=== PATIENT | male | born 1965 | race Caucasian/White ===

== ENCOUNTER 2021-02-22 13:42 | Inpatient (IN) | payer MEDICARE, MEDICAID ==
[~2021-02-22] VITALS: Ht 157.5 cm; Wt 77.1 kg
--- NOTE | ~2021-02-22 | OP ---
[address] [address] OPERATIVE REPORT Name: FAM JIANG Ольга Room: [address] IN .R.#: [id number] Admission: 02/22/21 Attend Phys: Lionel Pettit MD Discharge: 02/25/21 Date of : 63 Report #: [id number] THIS REPORT FOR: cc: FAM - Family physician unknown FAM - Family physician unknown Sumeet Carey DO ~ DOC #: [id number] Aashish Carey DO DATE OF SURGERY: 02/22/2021 SURGEON: Chris Morton DO ASSISTANTS: Aashish Carey DO and Adalberto Crump DO PREOPERATIVE DIAGNOSIS: Left ankle bimalleolar fracture, closed, displaced. POSTOPERATIVE DIAGNOSIS: Left ankle bimalleolar fracture, closed, displaced. OPERATION PERFORMED: Closed reduction and external fixation application of left bimalleolar ankle fracture. INDICATIONS: The patient is a 55-year-old male who sustained a fall when he was attempting to sit into his rollator walker, and the brakes were not securely engaged causing him to lose his balance and fall causing a twisting injury of his left ankle. This happened approximately 1 week ago. He has since been in [facility], nonweightbearing with a splint applied to his left ankle. He was seen in orthopedic clinic today for evaluation and radiographs were obtained, which demonstrated lateral subluxation of the left ankle bimalleolar fracture. His splint was taken down to reveal a superficial ulceration occurring over the medial malleolus due to pressure with some weeping of this ulcer. This patient has substantial past medical history that includes end-stage renal disease, on dialysis treatment. He has multiple wounds of bilateral upper extremities, which are slow to heal and have dressings on them currently. He has a history of having had a myocardial infarction with 7 stents placed in his cardiac vessels. The risks, indications, alternatives, and benefits of closed reduction with external fixator application for the aforementioned fracture were all discussed with the patient. These risks include but are not limited to pain, infection, neurovascular injury, inability to return to prior functional levels, loss of reduction, hardware failure, malunion, nonunion, need for repeat procedure, DVT/PE, myocardial arrhythmias, myocardial infarction, stroke, , as well as any and all risks attributable to MAC anesthesia. The patient verbalizes understanding of these risks and understanding of the need for improved alignment of this fracture pattern in order to heal with appropriate ankle stability. He provides verbal consent for proceeding with closed reduction and external fixation application and later signs informed consent for proceeding with [place] [address] OPERATIVE REPORT Name: FAM JIANG Room: [address] IN M.R.#: [id number] Admission: 02/22/21 Attend Phys: Lionel Pettit MD Discharge: 02/25/21 Date of : 63 Report #: [id number] PREOPERATIVE ANTIBIOTICS: Two grams IV Ancef. PROCEDURE IN DETAIL: The patient was met in the preoperative bay where informed consent was signed. He was transferred to the operative suite onto a well-padded operative table. MAC anesthesia and popliteal nerve block for the left lower extremity was provided. The left lower extremity was prepped and draped in the standard sterile format. A surgical time-out was performed indicating the correct patient, date of , operation to be performed and operative extremity. All present were in agreement with proceeding as discussed. Using fluoroscopic guidance, the site for the tibial external fixator pin placement was identified. A targeting arm from the external fixator pin set was used to leslie the skin sites for pin placement. A 15-blade scalpel was used to incise the skin at the sites for the pin entry. Hemostats were used to provide blunt dissection down to the level of the periosteum of the tibia. The pin entry point was just medial to the tibial crest. Two Schanz pins were then placed under power and confirmed on fluoroscopy to aid the anterior to posterior in orientation and bicortical and purchase for both of the pins. Attention was then turned to the calcaneal pin placement site. Again, using fluoroscopic guidance, the appropriate skin entry point was verified under fluoroscopy and a 15-blade scalpel was used to make a small focal incision on the medial aspect of the hindfoot. Hemostats were then used to provide blunt dissection down to the level of the calcaneus. Appropriate entry point for the calcaneal Schanz pin was verified under fluoroscopy. Once appropriate position was achieved, the pin was then advanced through the calcaneus under power prior to exiting the skin laterally. A small incision was made overlying the pin tip to avoid traumatically exiting the skin laterally. The pin was then advanced to the appropriate depth. The remainder of the external fixation device was then assembled across the pins that had been placed and provisionally tightened proximally and left loose distally. Using a combination of traction and translation through the pins and manual pressure on the patient's ankle, closed reduction of the left bimalleolar fracture was verified under fluoroscopy, and while held, the external fixation device was securely tightened and confirmed to have held reduction using fluoroscopic guidance. Final images were obtained. The pin sites were dressed with Xeroform gauze, 4 x 4 gauze, and Kerlix gauze and secured in place with tape. The drapes were removed, and the patient was successfully reversed from MAC anesthesia and transferred to the PACU in stable condition. Estimated blood loss was 5 mL. Sponge and instrument count was correct x2. ANESTHESIA TYPE: MAC and popliteal nerve block. I attest that Dr. Chris Morton was present in the operative suite for all critical [place] [address] OPERATIVE REPORT Name: FAM JIANG Room: [address]#: [id number] Admission: 02/22/21 Attend Phys: Lionel Pettit MD Discharge: 02/25/21 Date of : 63 Report #: [id number] DISPOSITION: The patient will be admitted to the telemetry unit for observation. Orders were placed for the pin site care to begin tomorrow. He will have his left lower extremity elevated with no support under the heel. DO CARLITO Menjivar/KEVIN/SHREYA By: [id number] Aashish Carey DO /nt
[2021-02-22 15:15] LABS: HEMATOCRIT 35.9 % (42.0-52.0); HEMOGLOBIN 11.8 gm/dL (14.0-18.0); MCH 32.2 pg (26.0-34.0); MCHC 32.8 g/dL (28.0-37.0); MCV 98.4 fL (80.0-100.0); MPV 9.1 fl. (7.2-11.1); RBC 3.65 mil/uL (4.50-6.00); RDW-CV 18.1 % (10.5-14.5); WBC 9.9 thou/uL (4.0-11.0)
[2021-02-22 15:31] LABS: CALCIUM 10.6 mg/dL (8.5-10.1); CREATININE 5.7 mg/dL (0.6-1.3); POTASSIUM 5.2 mmol/L (3.5-5.1)
--- NOTE | 2021-02-22 15:53 | EKG ---
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1965 Requested By: Chris Morton Order Number: [id number] MD: Robby Vasquez Measurements Intervals [place] Rate: 73 P: 41 WV: 196 QRS: -37 QRSD: 129 T: 121 QT: 412 QTc: 454 Interpretive Statements Sinus rhythm Nonspecific IVCD with LAD LVH with secondary repolarization abnormality lateral q waves Baseline wander in lead(s) V6 No previous ECG available for comparison Electronically Signed On 02-22-2021 15:53:44 CDT by Robby Vasquez [email or web address] <ELECTRONICALLY SIGNED> By: Robby Vasquez MD, [facility] 02/22/21 1553 1504 1504 Robby Vasquez MD, [facility] /EPI
[2021-02-22] MEDS ORDERED: TYLENOL325 MG PO (16:04)
[2021-02-22] MEDS ORDERED: ASA81BEC PO (16:05)
[2021-02-22] MEDS ORDERED: AMLODIPINE BESY10 MG PO (16:05)
[2021-02-22] MEDS ORDERED: ROCALTROL0.25 MCG PO (16:06)
[2021-02-22] MEDS ORDERED: CALCIUM ACETAT667 M1 PO (16:07)
[2021-02-22] MEDS ORDERED: CALCIUM500 MG PO (16:08)
[2021-02-22] MEDS ORDERED: CARVEDILOL25 MG PO (16:09)
[2021-02-22] MEDS ORDERED: VITAMIN D3 PO (16:21)
[2021-02-22] MEDS ORDERED: PLAVIX 75 MG TA75 MG PO (16:21)
[2021-02-22] MEDS ORDERED: HEPARIN 1,1000 UNIT/ IV (16:23)
[2021-02-22] MEDS ORDERED: HYDRALAZINE 2525 M1 PO (16:23)
[2021-02-22] MEDS ORDERED: LANTUS SUBQ (16:24)
[2021-02-22] MEDS ORDERED: HUMALOG100 UNIT/1 SUBQ ×2 (16:25→16:26)
[2021-02-22] MEDS ORDERED: LEVO-T25 MCG PO (16:26)
[2021-02-22] MEDS ORDERED: PROTONIX40 M2 PO (16:27)
[2021-02-22] MEDS ORDERED: SSD CREAM 1% 5050 GM TOP (16:29)
[2021-02-22] MEDS ORDERED: TERAZOSIN HCL5 MG PO (16:29)
[2021-02-22] MEDS ORDERED: TRAMADOL 50 MG50 MG PO (16:30)
[2021-02-22 20:30] VITALS: BP 110/65
[2021-02-23 04:00] VITALS: BP 110/59
[2021-02-23 04:20] LABS: ABSOLUTE BASOPHILS 0.1 thou/uL (0.0-0.2); ABSOLUTE EOSINOPHILS 0.4 thou/uL (0.0-0.7); ABSOLUTE LYMPHOCYTES 0.8 thou/uL (0.8-5.3); ABSOLUTE NEUTROPHILS 6.9 thou/uL (1.6-8.1); BASOPHILS 0.9 %; CALCIUM 9.7 mg/dL (8.5-10.1); CREATININE 6.6 mg/dL (0.6-1.3); EOSINOPHILS 4.6 %; HEMATOCRIT 34.4 % (42.0-52.0); HEMOGLOBIN 11.2 gm/dL (14.0-18.0); LYMPHOCYTES 8.2 %; MCH 32.3 pg (26.0-34.0); MCHC 32.4 g/dL (28.0-37.0); MCV 99.5 fL (80.0-100.0); MONOCYTES 11.4 %; MPV 9.2 fl. (7.2-11.1); NUCLEATED RBCS 0 /100WBC; PLATELET COUNT* 259 thou/uL (150-400); POLYS 74.9 %; RBC 3.46 mil/uL (4.50-6.00); RDW-CV 18.5 % (10.5-14.5); WBC 9.2 thou/uL (4.0-11.0)
--- NOTE | 2021-02-23 06:57 | NUR ---
ASSUMED PT CARE AT APPROX. 1945. PT IS A/OX4. PT IS SR ON TELE MONITOR. PT HAS AN AICD. PT VSS. PT IS ON RA AND USES 3.5L O2 VIA NC AT [facility]. 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 PT HAS DMII. PT REFUSED LANTUS INSULIN LAST NOC. BLOOD GLUCOSE LAST NOC WAS 124MG/DL. PT AFRAID HE WAS GOING TO BOTTOM OUT. BLOOD GLUCOSE WAS 96MG/DL THIS AM. PT IS IN ESRD. PT HAS A RFA AVF AND HEMODIALYSIS EVERY MWF. PT HAS DEEP WOUNDS ON BL HANDS. PT HAS A PRESSURE ULCER ON RIGHT LATERAL FOOT, AND MULTIPLE SCABS ALL OVER HIS BODY. PICTURES PRINTED IN CHART. PT HAS A CLOSED LEFT ANKLE FRACTURE WITH EXTERNAL FIXATION DEVICE. SOME RED BLOOD NOTED ON DRESSING COVERING ANKLE. CHUX PAD REMAINED DRY DURING THE NOC. PT REFUSED MULTIPLE MEDICATIONS DURING THE NOC AND THIS AM. SEE EMAR. HOURLY ROUNDS COMPLETE CHARTED. ADMISSION CHARTING COMPLETE CHARTED. WILL CONT. TO MONITOR.
[2021-02-23 08:28] VITALS: BP 110/66
--- NOTE | 2021-02-23 10:50 | NUR ---
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 PLACE ORDERED, TRACING SR- UPON ASSESSMENT PT NOTED TO BE RESTING IN BED- PT A&O X4- ANURIC, CONT OF BOWEL- BE REST IN PLACE WITH Q2 HOUR TURNS- LCTA/DIMINISHED IN BASES, RESP EVEN AND UN-LABORED- VSS, O2 SAT 96% ON RA- ABD SOFT/ROUND/NON-TENDER, BS X4 QUADS- LAST BM REPORTED 02/22/21- IV NOTED TO LEFT FA INTACT AND SL- AV FISTULA NOTED TO RIGHT FA INTACT WITH POSITIVE BRUIT/THRILL- DIALYSIS IN PLACE THIS AM ORDERED- SCATTERED HEALED/SCARED SCABS NOTED- LEFT AND RIGHT HAND NOTED WITH DRESSINGS IN PLACE, NO VISIBLE DRAINGED NOTED- LEFT ANKLE WITH PINS NOTED, AND DRESSING IN PLACE, SMALL AMOUT OF DRAINAGE NOTED- BS MONITORED ORDERED- NON-WEIGHT BARING TO LLE- PT DENIES ANY C/O PAIN/DISCOMFORT- ALL NEEDS MET AT THIS TIME
--- NOTE | 2021-02-23 14:36 | NUR ---
Pt is A&O. Pt has been at [facility] since 02/17 for ARU. Plan return at [place]. Pt had dialysis today, normally receives dialysis at [facility]. Therapy evals ordered. Possible dc back to ARU tomorrow beindng rosa maria signing off. [facility] p:[phone] f:[phone]
--- NOTE | 2021-02-23 16:18 | NUR ---
WOUND NURSE: WENT TO SEE PATIENT AT 1300, BUT HE WAS OFF THE UNIT. WILL REATTEMPT TO SEE PATIEN TOMORROW.
[2021-02-23 18:52] VITALS: BP 113/59
[2021-02-23 20:00] VITALS: BP 115/64
[2021-02-24 04:00] VITALS: BP 112/61
[2021-02-24 04:19] LABS: ABSOLUTE BASOPHILS 0.1 thou/uL (0.0-0.2); ABSOLUTE EOSINOPHILS 0.4 thou/uL (0.0-0.7); ABSOLUTE LYMPHOCYTES 0.8 thou/uL (0.8-5.3); ABSOLUTE MONOCYTES 1.3 thou/uL (0.0-1.2); ABSOLUTE NEUTROPHILS 7.4 thou/uL (1.6-8.1); EOSINOPHILS 4.1 %; HEMATOCRIT 35.4 % (42.0-52.0); HEMOGLOBIN 11.2 gm/dL (14.0-18.0); LYMPHOCYTES 7.7 %; MCH 31.4 pg (26.0-34.0); MCHC 31.6 g/dL (28.0-37.0); MCV 99.6 fL (80.0-100.0); MONOCYTES 13.4 %; MPV 8.9 fl. (7.2-11.1); NUCLEATED RBCS 0 /100WBC; PLATELET COUNT* 279 thou/uL (150-400); POLYS 73.8 %; RBC 3.55 mil/uL (4.50-6.00); RDW-CV 18.3 % (10.5-14.5)
[2021-02-24 04:34] LABS: ALBUMIN 2.5 g/dL (3.4-5.0); CALCIUM 10.3 mg/dL (8.5-10.1); CREATININE 4.8 mg/dL (0.6-1.3); POTASSIUM 4.5 mmol/L (3.5-5.1); TOTAL BILIRUBIN 0.8 mg/dL (<0.1-1.0); TOTAL PROTEIN 7.6 g/dL (6.4-8.2)
--- NOTE | 2021-02-24 06:01 | NUR ---
ASSUMED PT CARE AT APPROX. 1930. PT IS A/OX4. PT IS MED-SURG STATUS NOW PER ORDER. VSS. PT REFUSED ALL NOC MEDICATIONS. DRESSING TO BL HANDS REMAIN INTACT. DRESSING ON LEFT FOOT REMAINS INTACT, SCANT AMOUNT OF DRIED BLOOD NOTED ON HEEL. PT WITNESSED PICKING SCABS ON UPPER ARM. RN EDUCATED PT TO NOT PICK THE SCABS. HOURLY ROUNDS COMPLETE CHARTED. PT RESTING IN BED ASLEEP. WILL CONT. TO MONITOR.
--- NOTE | 2021-02-24 07:04 | NUR ---
PT REFUSED AM MEDS. STATED HE WANTS TO TAKE THEM WITH BREAKFAST.
[2021-02-24 07:48] VITALS: BP 1009/58; BP 109/58
--- NOTE | 2021-02-24 09:32 | NUR ---
WOUND NURSE: JASON SEEN THIS MORNING TO ADDRESS MULTIPLE WOUNDS ON BILATERAL POSTERIOR HANDS, RIGHT FOOT. PATIENT REPORTS WOUND ON LEFT HAND DEVELOPED THE RESULT OF INFILTRATED IV BACK IN OCTOBER 2020. MEASURES 6.5 X 4.8 X 0.3 CM. CONTAINS RED, GRANULATING AND NONGRANULATING TISSUE IN ALLI WOUND BED ALONG WITH APPROX 10% FIRMLY ADHERENT YELLOW SLOUGH. NO ODOR, PERIWOUND REDNESS OR INDURATION. PATIENT REPORTING NO PAIN WITH LEFT HAND WOUND, PAIN OF 8 ON RIGHT HAND WOUND. LEFT HAND CONTAINS AREAS OF EXPOSED TENDON. RIGHT HAND CONTAINS >90% BEEFY RED GRANULATION TISSUE AND THIN LAYER OF LIGHT BEIGE LOOSELY ADHERENT EXUDATE. NO PERIWOUND REDNESS, WARMTH, OR INDURATION. CLEANSED BOTH WOUNDS WITH WOUND CLEANSER AND 4X4'S, APPLIED THERAHONEY UNDER AQUACEL UNDER FOLDED 4X4'S, WRAPPED WITH KERLEX ROLL GAUZE, THEN SECURED WITH TAPE. DRY STABLE ESCHAR PRESENT ON LEFT HAND 4TH DIGIT MEASURES 0.4 X 0.5 CM, 5TH DIGIT 0.9 X 0.8 CM. NO PERIWOUND REDNESS, WARMTH, OR INDURATION. RIGHT FOOT CONTAINS A NONSTAGEABLE DIABETIC FOOT ULCER X 2 ON THE LATERAL ASPECT. PROXIMAL MEASURES 2.5 X 1.2, DISTAL MEASURES 0.4 X 0.5 CM. EACH CONTAINS INTACT REDDISH BROWN SCAB. RIGHT FOOT 5TH DIGIT WITH SMALL SCAB MEASURING 0.3 X 0.3 CM. APPLIED BETADINE SWAB TO EACH SCAB AND ESCHAR. PATIENT INSTRUCTED ON MEASURES TO PROMOTE HEALING AND PREVENT COMPLICATIONS, NAMELY GLYCEMIC CONTROL, NUTRIONAL NEEDS, REPORTABLE SIGNS AND SYMPTOMS IF OCCURS. PATIENT STATES HE UNDERSTANDS.
--- NOTE | 2021-02-24 09:51 | NUR ---
PT REFUSING MOST OF HIS MED AND ALL INSULIN.
[2021-02-24] MEDS ORDERED: ASPIRIN325 PO (10:51)
--- NOTE | 2021-02-24 11:56 | NUR ---
Pt discharging back to [facility]. Faxed dc orders. Chart copied. Nurse report number is [phone]. [facility] [place] between 3-330.
[2021-02-24 12:00] VITALS: BP 112/64
--- NOTE | 2021-02-24 12:23 | NUR ---
DISCHARGE CANCELED FOR TODAY AND PT WILL BE DISCHARGED TOMORROW.
--- NOTE | 2021-02-24 13:21 | NUR ---
DC delayed. Pt to [facility], facility to [facility] and transport between 10-1030am. Updated Dr Svetlana to round early to ensure that Pt is medically stable to dc. Faxed referral. Nurse report number is [phone], fax is [phone]. Son aware of dispo plans. Chart already copied.
--- NOTE | 2021-02-24 14:31 | NUR ---
SURGICAL DRESSING LEFT ANKLE AND ORONA, PIN CARE COMPLETED BY ORTHO RESIDENT JOHNNIE CORTÉS.
[2021-02-24 17:43] VITALS: BP 128/68
--- NOTE | 2021-02-24 18:45 | NUR ---
PT WILL BE TRANSFERRED TO ROOM 108 AT SHIFT CHANGE AND BEDSIDE REPORT WILL BE GIVEN ANIKA BOSTON.
[2021-02-25 00:19] VITALS: BP 131/76
--- NOTE | 2021-02-25 05:22 | NUR ---
PATIENT SLEEPING IN RECLINER AT BEGINNING OF SHIFT THEN MOVED TO THE BED. PT DENIES PAIN/NAUSEA. PT CHOSE HIS HS MEDICATIONS REFUSING SOME OF THEM. DRESSINGS ON BOTH HANDS CHANGED DURING THE NIGHT. PT DENIES NEEDS AT THIS TIME. FREQUENTLY USED ITEMS AND CALL LIGHT WITHIN REACH. SIDERAIL UP X2. WILL CONTINUE TO MONITOR.
[2021-02-25 07:57] VITALS: BP 121/61
--- NOTE | 2021-02-25 09:00 | NUR ---
Pt to have dialysis here prior to dc back [facility]. HAKEEM spoke with Ellen at rehab, plan is for Pt to be picked up at 1:30pm.
--- NOTE | 2021-02-25 09:30 | NUR ---
WOUND NURSE: PATIENT SEEN FOR FOLLOW UP DRESSING CHANGE PRIOR TO DISCHARGE FROM ACUTE CARE LATER TODAY. WOUNDS WITHOUT CHANGE COMPARED TO YESTERDAY. PHOTOGRAPHS TAKEN OF BILAT HAND AND RIGHT FOOT WOUNDS.
[2021-02-25 13:19] VITALS: BP 116/65
--- NOTE | 2021-02-25 15:45 | NUR ---
IV REMOVED. PATIENT LEFT UNIT VIA W/C WITH W/C FACING MACHINE OPERATOR AT APPROX. 1542.
== END 2021-02-25 15:42 | DRG 492 ==
LOC: M.TBA 13:42 → M.2W 14:14 → M.TBA 14:14 → M.2W 18:59 → M.ORTHSURG 02-24 20:21
PROVIDERS: Orthopaedic Surgery; Student in an Organized Health Care Education/Training Program; ADMIT Internal Medicine; ATTEND Internal Medicine
PROC: 0SSGXZZ Reposition Left Ankle Joint, External Approach (ICD-10-PCS; principal; 2021-02-22)
PROC: 0QSK35Z Reposition Left Fibula with External Fixation Device, Percutaneous Approach (ICD-10-PCS; principal; 2021-02-22)
PROC: 2W5 Placement, Anatomical Regions, Removal (ICD-10-PCS; principal; 2021-02-22)
PROC: 0QSH35Z Reposition Left Tibia with External Fixation Device, Percutaneous Approach (ICD-10-PCS; principal; 2021-02-22)
PROC: 5A1D70Z Performance of Urinary Filtration, Intermittent, Less than 6 Hours Per Day (ICD-10-PCS; 2021-02-23)
DX: S82.842A Displaced bimalleolar fracture of left lower leg, initial encounter for closed fracture (principal); N18.6 End stage renal disease; I12.0 Hypertensive chronic kidney disease with stage 5 chronic kidney disease or end stage renal disease; Z20.822 Contact with and (suspected) exposure to COVID-19; I25.10 Atherosclerotic heart disease of native coronary artery without angina pectoris; L98.499 Non-pressure chronic ulcer of skin of other sites with unspecified severity; I25.5 Ischemic cardiomyopathy; E11.22 Type 2 diabetes mellitus with diabetic chronic kidney disease; L97.529 Non-pressure chronic ulcer of other part of left foot with unspecified severity; W18.39XA Other fall on same level, initial encounter; Y93.89 Activity, other specified; Z95.5 Presence of coronary angioplasty implant and graft; Z87.891 Personal history of nicotine dependence; Y92.89 Other specified places as the place of occurrence of the external cause; Y99.8 Other external cause status